=== PATIENT | female | born 1980 | race African-American/Black ===

== ENCOUNTER 2016-10-25 01:11 | Emergency (ER) | payer OTHER ==
[~2016-10-25] VITALS: Ht 167.6 cm; Wt 69.2 kg
[~2016-10-25 01:11] MED LIST: ALLEGRA-D 241 TABLET PO; ANTIVERT25 MG PO; CLARITIN10 M3 PO; FIORICET 50-301 EACH PO; MEDROXYPRO150 MG/1 M IM; Motrin PO; NOHOMEMEDS; ORTHO CYCLEN1 TABLET PO; PREDNISONE50 MG PO; PRENACARE TABL1 EACH PO
[2016-10-25] MEDS ORDERED: MOTRIN800 MG PO (04:03)
[2016-10-25 04:11] VITALS: BP 128/74
== END 2016-10-25 04:12 | disposition home or self-care (01) ==
LOC: EME 01:11
DX: M25.561 Pain in right knee (principal)
CPT/HCPCS: 73564; 99281; 99283

== ENCOUNTER 2017-05-01 09:18 | Emergency (ER) | payer OTHER ==
[~2017-05-01] VITALS: Ht 167.6 cm; Wt 67.2 kg
[~2017-05-01 09:18] MED LIST changes: +MOTRIN800 MG PO
[2017-05-01] MEDS ORDERED: BUTALB-CAFF-AC1 EACH PO (09:42)
[2017-05-01] MEDS ORDERED: TOPIRAMATE50 MG PO (09:42)
[2017-05-01 11:40] VITALS: BP 126/74
== END 2017-05-01 11:43 | disposition home or self-care (01) ==
LOC: EME 09:18
DX: G43.909 Migraine, unspecified, not intractable, without status migrainosus (principal); J45.909 Unspecified asthma, uncomplicated
CPT/HCPCS: 99281; 99284; J1885; J2765